=== PATIENT | male | born 1955 | race Two or more races ===

== ENCOUNTER 2024-04-09 00:20 | Emergency (ER) | payer MEDICARE, MEDICAID, SELFPAY ==
[2024-04-09 00:21] VITALS: PULSE 62; RESP 18; O2SAT 95
[2024-04-09 00:49] VITALS: BP 148/92; PULSE 60; RESP 18; TEMP 36.7; O2SAT 95; BMI 34.0
--- NOTE | 2024-04-09 01:08 | PD.EDRME ---
Rapid Medical Screening Exam RME Arrival date/time: 04/09/24 00:20 68M with no significant PMH presents to ED with 2 days of gross hematuria. Chief Complaint: Urogenital-Male Time Seen by Provider: 04/09/24 04:24 Vital signs: Vital Signs Temperature 98.1 F 04/09/24 00:49 Pulse Rate 60 04/09/24 00:49 Respiratory Rate 18 04/09/24 00:49 Blood Pressure 148/92 H 04/09/24 00:49 Pulse Oximetry (%) 95 04/09/24 00:49 Oxygen Delivery Method Room Air 04/09/24 00:49
--- NOTE | 2024-04-09 01:10 | XR_ITS ---
Examination: CT abdomen with intravenous contrast CT pelvis with intravenous contrast 2-D coronal reconstructions 2-D sagittal reconstructions Date and time of exam:April 09, 2024 0227 hrs. Indications: Prominent hematuria today. CTDI: vol (mGy) 23.11 DLP: (mGycm) 1188 Technique: Multiple axial sections of the abdomen and pelvis have been obtained. 64 slice high-resolution scanner used. 3 mm axial sections have been obtained, post intravenous injection 60 cc [id number] 2-D sagittal, coronal reconstructions obtained. Low dose protocols were performed. One or more of the following dose reduction techniques were used; automated exposure control, adjustment of the mA and/or KV according to patient size, use of iterative reconstruction technique. 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
[2024-04-09 01:31] LABS: Collection Type, Urine Clean Catch; Squamous Epithelial Cell,Urine 0 /hpf (0-5)
[2024-04-09 01:34] LABS: Basophils # (Auto) 0.1 Thou/mm3 (0.0-0.2); Basophils % (Auto) 1 % (0-2.5); Eosinophils # (Auto) 0.4 Thou/mm3 (0.0-0.5); Eosinophils % (Auto) 5 % (0-10); Hematocrit 45.5 % (41.0-53.0); Hemoglobin 14.5 g/dL (13.5-16.0); Immature Granulocytes % (Auto) 0 % (0-0); Immature Granulocytes Auto 0.01 Thou/mm3 (0.00-0.00); Lymphocytes # (Auto) 2.5 Thou/mm3 (1.0-4.8); Lymphocytes % (Auto) 31 % (10-50); Mean Corpuscular HGB Conc 31.9 g/dl (31.0-37.0); Mean Corpuscular Hemoglobin 30.1 pg (25.0-35.0); Mean Corpuscular Volume 95 fL (80-100); Monocytes # (Auto) 0.7 Thou/mm3 (0.0-0.8); Monocytes % (Auto) 8 % (0-12); Neutrophils # (Auto) 4.5 Thou/mm3 (1.8-7.7); Neutrophils % (Auto) 55 % (37-80); Nucleated Red Blood Cell % 0 /100 WBC (0); Platelet Count 200 Thou/mm3 (140-440); RDW Standard Deviation 49.1 fL (35.1-43.9); Red Blood Count 4.81 Miln/mm3 (4.50-5.90); White Blood Count 8.1 Thou/mm3 (3.8-10.6)
[2024-04-09 01:41] LABS: Bilirubin,Urine Negative (Negative); Blood,Urine 3+ (Negative); Budding Yeast,Urine Present; Clarity,Urine Turbid (Clear/Hazy); Color,Urine Yellow (Lt Yel-Yel); Culture Indicated,Urine Yes; Glucose, Urine Negative (Negative); Ketones,Urine Negative (Negative); Leukocyte Esterase,Urine Positive (Negative); Nitrite,Urine Negative (Negative); Protein,Urine 2+ (Neg - Trace); RBC,Urine 3689 /hpf (0-3); Specific Gravity,Urine 1.025 (1.001-1.035); Urobilinogen,Urine Negative mg/dL (0.0-1.0); WBC,Urine 186 /hpf (0-5)
[2024-04-09 01:55] LABS: Alanine Aminotransferase 13 U/L (10-49); Albumin, Serum 4.2 gm/dL (3.4-4.8); Albumin/Globulin Ratio 1.6 (1.2-2.2); Alkaline Phosphatase 55 U/L (46-116); Anion Gap 5 (7-16); Aspartate Amino Transferase 17 U/L (0-34); BUN/Creatinine Ratio 15 Ratio (12-20); Bilirubin,Total 0.4 mg/dL (0.3-1.2); Blood Urea Nitrogen 15 mg/dL (9-23); Carbon Dioxide 31.8 mMol/L (20.0-31.0); Chloride 108 mMol/L (98-107); Estimated Creatinine Clearance 79.4 mL/min (>60); Globulin 2.6 gm/dL (2.3-3.5); Glucose 93 mg/dL (74-106); Lipase 34 U/L (12-53); Osmolality,Calculated 289 (275-295); Potassium 3.7 mMol/L (3.4-5.1); Sodium 145 mMol/L (136-145); Total Protein 6.8 gm/dL (5.7-8.2); eGFR > 60 See Note
--- NOTE | 2024-04-09 04:09 | PRELIM_ITS ---
CT scan of the abdomen and pelvis with intravenous contrast (axial sections with sagittal and coronal reformats) April 09, 2024 0227 hoursClinical History: Gross hematuria.Comparison: No prior study is available for comparison. Findings:Bibasilar streaky atelectasis is present. Fatty infiltration of the liver is noted. Nonspecific perinephric fat stranding is noted bilaterally. There are a few cyst s in bilateral kidneys , the largest in the right kidney measuring 3.8 cm. The gallbladder, pancreas, spleen and adrenals are unremarkable.No evidence of bowel obstruction. A moderate amount of fecal ma terial is present in the colon. The appendix is within normal limits (images [id number]). There is no me senteric or retroperitoneal adenopathy.Moderate prostatomegaly with urinary bladder wall thickening, which may represent cystitis versus sequelae of chronic urinary bladder outflow obstruction. There is an urinary bladder diverticulum in its right posterolateral wall. There are multiple dependent vane culi in the urinary bladder. There is no free fluid or free air. The aorta and its branches demonstr ate atheromatous calcification without evidence of aneurysm. Degenerative changes are identified in t he spine. There is anterolisthesis of L4 on L5. Impression:1. Multiple depended vesical calculi.2. M oderate prostatomegaly with urinary bladder wall thickening, which may represent cystitis versus sequ elae of chronic urinary bladder outflow obstruction.3. No evidence of renal/ureteric calculus or hydr oureteronephrosis. 4. Other findings as described above. Report Electronically Signed By: Jay love 04/09/2024 4:09:11 AM [EST]
--- NOTE | 2024-04-09 04:25 | PD.EDMALE ---
ED Male Genitalurinary RME/HPI General Chief complaint: Urogenital-Male Stated complaint: Blood in urine Time Seen by Provider: 04/09/24 04:24 Arrival date/time: 04/09/24 00:20 68M with history of HTN presents to ED with 2 days of gross hematuria. Patient denies dysuria and N/V. Limitations: no limitations Related Data Previous Rx's ?Medication ?Instructions ?Recorded ondansetron 4 mg disintegrating 4 mg PO QID PRN nausea and 11/22/17 tablet (Zofran ODT) vomiting #14 tabs cefuroxime axetil 500 mg tablet 500 mg PO BID 10 days #20 tabs 04/09/24 Allergies Allergy/AdvReac Type Severity Reaction Status Date / Time Sulfa (Sulfonamide Allergy Unknown Verified 11/22/17 09:15 Antibiotics) Review of Systems Review of Systems Systems Reviewed: All systems reviewed, normal except as documented Constitutional Constitutional: Reports system reviewed and no additional complaints, except as documented, Denies fever(s) and Denies headache(s) ENT Ears, Nose, Mouth, and Throat: Denies disequilibrium and Denies headache(s) Cardiovascular Cardiovascular: Reports system reviewed and no additional complaints, except as documented, Denies chest pain and Denies dyspnea Respiratory Respiratory: Reports system reviewed and no additional complaints, except as documented, Denies cough and Denies dyspnea Gastrointestinal Gastrointestinal: Reports system reviewed and no additional complaints, except as documented, Denies abdominal pain, Denies nausea and Denies vomiting Genitourinary Genitourinary: Reports as per HPI and Reports hematuria Neurologic Neurologic: Reports system reviewed and no additional complaints, except as documented, Denies confusion, Denies disequilibrium and Denies headache(s) Psychiatric Psychiatric: Denies confusion Past Medical History Past Medical History NEUROLOGIC: Positive Traumatic Brain Injury CARDIAC: Negative Cardiac Disorders or Congestive Heart Failure RESPIRATORY: Negative Chronic Obstructive Pulmonary Disease (COPD) or Asthma GASTROINTESTINAL: Negative Gastrointestinal Disorders GENITOURINARY: Negative Genitourinary Disorders or Renal Disease ENDOCRINE: Negative Endocrine Disorders, Diabetes Mellitus Type 1 or Diabetes Mellitus Type 2 HEMATOLOGIC: Negative Sickle Cell Disease Family History FAMILY HISTORY: Negative Family Cardiac Disorders Surgical History SURGICAL: Positive Open Reduction Internal Fixation Social History SMOKING STATUS: Former smoker ED Exam General Limitations: Present no limitations General appearance: Present alert and in no apparent distress Head Head exam: Present atraumatic Eye Eye exam: Present normal appearance, PERRL and EOMI ENT ENT exam: Present normal exam, normal oropharynx and mucous membranes moist Neck Neck exam: Present normal inspection, full ROM and trachea midline Chest Chest inspection: Present normal inspection and symmetric chest wall rise Respiratory Respiratory exam: Present normal lung sounds bilaterally Cardiovascular Cardiovascular exam: Present regular rate, normal rhythm and normal heart sounds Abdominal Exam Abdominal exam: Present soft and normal bowel sounds Extremities Exam Extremities exam: Present normal inspection and full ROM Back Exam Back exam: Present normal inspection and full ROM Neurological Exam Neurological exam: Present alert, oriented X3 and CN II-XII intact Psychiatric Psychiatric exam: Present normal affect and normal mood Skin Skin exam: Present warm, dry, intact and normal color Course Quality Measures none Orders Category Date Time Status CT Screening NOW Care 04/09/24 01:10 Active Insert IV NOW Care 04/09/24 01:[address] abdomen pelvis w con Stat Exams 04/09/24 01:10 Taken CBC Stat Lab 04/09/24 01:14 Completed CMP [Comprehensive Metabolic Panel] Stat Lab 04/09/24 01:14 Completed Lipase Stat Lab 04/09/24 01:14 Completed Urinalysis, C/S if Indicated Stat Lab 04/09/24 01:14 Completed Urine Culture Stat Lab 04/09/24 01:14 Received Fluconazole [Diflucan] Med 04/09/24 04:25 Discontinued 150 mg PO X1 ONE cefTRIAXone/D5w 1gm IV premix [Rocephin/D5w 1gm IV Med 04/09/24 04:25 Active premix] 50 ml IV X1 Vital Signs Vital signs: Vital Signs Temperature 98.1 F 04/09/24 00:49 Pulse Rate 60 04/09/24 00:49 Respiratory Rate 18 04/09/24 00:49 Blood Pressure 148/92 H 04/09/24 00:49 Pulse Oximetry (%) 95 04/09/24 00:49 Oxygen Delivery Method Room Air 04/09/24 00:49 O2 at 95% on RA and WNLs Urogenital - Male MDM Narrative MDM Narrative:: 68M with history of HTN presents to ED with 2 days of gross hematuria. Patient denies dysuria and N/V. Physical exam reveals no flank tenderness. Patient is afebrile, calm, and alert. CT several bladder stones, but no kidney stones. No leukocytosis. CMP unremarkable. UA many RBCs and some WBCs, as well as yeast. Patient has been urinating in ER and states the color is getting highway engineer in color, which is a good sign. Will give ABX to prevent infection. Patient data External records reviewed:: [facility] previous records Clinical information provided by:: patient Social determinants that could affect healthcare access:: none Patient has the following chronic illnesses:: HTN How is presenting disease/condition affected by chronic disease/condition?: uneffected by Evaluation data The following diagnostics were reviewed and interpreted by me:: lab results and radiology exam(s) Lab and/or radiology exams considered but not ordered:: ordered Interpretation Summary: above Medications / Prescriptions Medications or Prescriptions considered but not ordered:: ordered Medication administrations:: Medication Administration History Ceftriaxone Sodium/Dextrose (Rocephin/D5w 1gm Iv Premix) 50 mls @ 100 mls/hr IV X1 ONE Stop: 04/09/24 04:54 Discontinued Medications Fluconazole (Fluconazole 150 Mg Tablet) 150 mg PO X1 ONE Stop: 04/09/24 04:26 above Consultations Consultation(s) initiated? (list below): No Diagnosis Urogenital Male Differential Diagnosis: urinary tract infection, priapism, urethritis, epididymitis, genital herpes simplex, prostatitis, acute retention of urine, inguinal hernia and other (bladder stones) Most likely diagnosis given after review of the tests above:: bladder stones and UTI Admission Indicated Admission indicated?: not indicated Admission Request Was there a request for admission?: No Disposition Plan Disposition Plan: Discharge Discharge Attestation Discharge Attestation: The patient and all family members were given an opportunity to ask questions and understood the discharge instructions. Discharge instructions specifically effects, indications for sooner follow up or return to the emergency department, and the expected course of current diagnosis. Patient condition: Stable Discharge Plan Plan Patient Disposition: HOME (Self Care) Disposition Comment: Stable Prescriptions/Referrals Prescriptions/Med Rec: New cefuroxime axetil 500 mg tablet 500 mg PO BID 10 Days Qty: 20 0RF No Action ondansetron [Zofran ODT] 4 mg tablet,disintegrating 4 mg PO QID PRN (Reason: nausea and vomiting) Qty: 14 0RF Problem List Clinical Impression: Bladder stones, Urinary tract infection Patient/Caregiver Discharge Instructions Education Materials: ED Hematuria Additional Instructions: Please follow-up with PCP within 24-48 hours and return immediately if symptoms worsen. If problem perists, see urologist. Print Language: Bol[place]ian Stand Alone Forms: Patient Portal Info Letter PA/CONSTRUCTION DRILLER Supervising Physician PA/CONSTRUCTION DRILLER Supervising Physician: Dr. Porter
[2024-04-09] MEDS: cefTRIAXone/D5w 1gm IV premix 50 ML IV (04:46)
[2024-04-09] MEDS: FLUCONAZOLE 150 MG TABLET PO (04:51)
== END 2024-04-09 19:00 | disposition home or self-care (01) ==
LOC: SERX 07:23
PROVIDERS: Physician Assistant; Emergency Provider Emergency Medicine
DX: N39.0 Urinary tract infection, site not specified (principal); N21.0 Calculus in bladder
CPT/HCPCS: 36415; 74177; 80053; 81001; 83690; 85025; 87086; 96365; 99285; A4649; J0696; Q9967; A9270